=== PATIENT | male | born 1985 | race Two or more races ===

== ENCOUNTER → 2021-11-01 13:52 | Outpatient (BNVA) | payer OTHER, SELFPAY | PROVIDERS: PCP Nurse Practitioner Family; Visit Provider Surgery | DX: L05.91 Pilonidal cyst without abscess (principal) | CPT/HCPCS: 99202 ==

== ENCOUNTER 2021-11-10 10:04 | Outpatient (REF) | payer OTHER, SELFPAY ==
[2021-11-10 11:03] LABS: Basophils Absolute Auto 0.1 X10*3/uL (0.0-0.2); Basophils Percent Auto 0.5 % (0-2); Eosinophils Absolute Auto 0.3 X10*3/uL (0.0-0.4); Eosinophils Percent Auto 2.6 % (0-4); Hematocrit 43.4 % (42.0-52.0); Hemoglobin 14.3 g/dl (14.0-18.0); Imm Gran Abs Auto 0.04 X10*3/uL (0.00-0.03); Imm Gran Pct Auto 0.4 % (0.0-0.4); Lymphocytes Absolute Auto 4.2 X10*3/uL (1.2-4.9); Lymphocytes Percent Auto 36.5 % (20-40); MANUAL DIFF FLAG SCAN; Mean Corpuscular HGB Conc 32.9 g/dl (31.0-36.0); Mean Corpuscular Hemoglobin 27.4 pg (27.0-33.0); Mean Corpuscular Volume 83.3 fL (80.0-98.0); Mean Platelet Volume 10.9 fL (9.4-12.4); Monocytes Absolute Auto 0.5 X10*3/uL (0.1-1.2); Monocytes Percent Auto 4.4 % (2-11); Neutrophils Absolute Auto 6.3 x10*3/uL (2.0-8.3); Neutrophils Percent Auto 55.6 % (45-73); Platelet Count 425 X10*3/uL (160-400); Red Blood Count 5.21 X10*6/uL (4.60-5.80); Red Cell Distribution Width 13.6 % (11.0-16.0); SCAN SMEAR FLAG 1; White Blood Count 11.4 X10*3/uL (4.8-10.8)
[2021-11-10 11:13] LABS: Appearance Urine CLEAR; Color Urine YELLOW; Glucose Urine UA NEG (NEG); Leukocyte Esterase Urine NEG (NEG); Nitrite Urine NEG (NEG); Specific Gravity - Urine >= 1.030 (1.005-1.025); Urine Blood NEG (NEG); Urine Ketones NEG (NEG); Urine Protein NEG (NEG-TRACE)
[2021-11-10 11:27] LABS: SLIDE REVIEW VERIFIED
[2021-11-10 11:35] LABS: Alanine Aminotransferase 35 U/L (0-40); Albumin Level 4.3 g/dL (3.5-5.0); Alkaline Phosphatase 100 U/L (39-117); Anion Gap 13 (12-20); Aspartate Amino Transferase 21 U/L (5-37); Bilirubin Total 0.4 mg/dL (0.0-1.0); Blood Urea Nitrogen 12 mg/dL (9-16); Calcium 9.6 mg/dL (8.4-10.2); Carbon Dioxide 24 mmol/L (22-29); Chloride 108 mmol/L (96-108); Cholesterol 190 mg/dL; Estimated Glomerular Filt Rate > 60; Glucose Fasting 95 mg/dL (60-99); HDL Cholesterol 21 mg/dL; LDL Cholesterol Calculated 124 mg/dl; Potassium 4.8 mmol/L (3.3-5.1); Sodium 140 mmol/L (135-145); Total Protein 7.7 g/dL (6.5-8.0); Triglycerides 227 mg/dL
[2021-11-10 11:41] LABS: TSH reflex Free T4 3.74 uIU/mL (0.32-4.0)
== END 2021-11-10 10:05 | disposition home or self-care (01) ==
LOC: HO.LAB 10:04
PROVIDERS: Visit Provider Nurse Practitioner Family
DX: F32.A Depression, unspecified (principal); F41.9 Anxiety disorder, unspecified; L05.91 Pilonidal cyst without abscess; R03.0 Elevated blood-pressure reading, without diagnosis of hypertension; E78.00 Pure hypercholesterolemia, unspecified; I10 Essential (primary) hypertension
CPT/HCPCS: 36415; 80053; 80061; 81003; 84443; 85025

== ENCOUNTER 2021-11-14 07:18 | Day surgery (SDC) | payer OTHER, SELFPAY ==
[2021-11-08 10:49] VITALS: BMI 37.3
--- NOTE | 2021-11-13 08:17 | HO.ANESPROP2 ---
Documented by User: Jada Presley NP 11/13/21 08:18 HPI - Anesthesia Eval Consult details Narrative: 36yo M for Excision Pilonidal Cyst PMFSH Active Problems Active Problems: All Active Problems (Updated 11/01/21 @ 14:25 by Devon Hill MD) Anxiety and depression (Acute) Cellulitis (Acute) Pilonidal cyst (Acute) Elevated blood pressure reading (Acute) Past Medical History Medical History (Updated 11/01/21 @ 14:25 by Devon Hill MD) Anxiety and depression Family History Family History Mother Mental health disorder Surgical History Surgical History History of knee surgery Hx of anterior cruciate ligament surgery Social History Social History Housing: House Alcohol intake: never Patient Tobacco Use Status: Current everyday Tobacco user Tobacco use type: Cigarette Cigarettes Per Day: 10 e-Cigarette/Vaping Use: Never Used Second Hand Smoke Exposure: No Use of substances other than those prescribed or required for medical reasons: No Substance Use Frequency: Daily Are you DNR?: No Advance Directives: No Advance Directives Information Provided: Yes Advance Directives on File: No service: No Current occupational status: unemployed Cognitive needs: No Hearing needs: No Vision needs: Yes (glasses) Meds Allergies Allergy/AdvReac Type Severity Reaction Status Date / Time Penicillins [PENICILLINS] Allergy Unknown Anaphylaxis Verified 11/14/21 07:30 Exam Exam Date and Time: November 13, 2021 0817 Height,Weight and Vital Signs: Height 5 ft 9 in Weight 114.759 kg Pertinent Lab Results Pertinent Lab Results: Laboratory Tests 11/10/21 11/10/21 10:25 10:25 WBC 11.4 H Hgb 14.3 Hct 43.4 Plt Count 425 H Sodium 140 Potassium 4.8 Chloride 108 Carbon Dioxide 24 BUN 12 Creatinine 1.11 Assessment and Plan Assessment Anesthesia Assessment: Chart Reviewed Documented by User: Brooklyn Ann MD 11/14/21 07:52 PMFSH Past Medical History Medical History (Updated 11/01/21 @ 14:25 by Devon Hill MD) Anxiety and depression Family History Family History Mother Mental health disorder Surgical History Surgical History History of knee surgery Hx of anterior cruciate ligament surgery History of Problems with Anesthesia: No Social History Social History Housing: House Alcohol intake: never Patient Tobacco Use Status: Current everyday Tobacco user Tobacco use type: Cigarette Cigarettes Per Day: 10 e-Cigarette/Vaping Use: Never Used Second Hand Smoke Exposure: No Use of substances other than those prescribed or required for medical reasons: No Substance Use Frequency: Daily Are you DNR?: No Advance Directives: No Advance Directives Information Provided: Yes Advance Directives on File: No service: No Current occupational status: unemployed Cognitive needs: No Hearing needs: No Vision needs: Yes (glasses) Meds Allergies Allergy/AdvReac Type Severity Reaction Status Date / Time Penicillins [PENICILLINS] Allergy Unknown Anaphylaxis Verified 11/14/21 07:30 Exam Airway Mallampati Class: II TM Dist: >3cm Neck ROM: Full Loose/Missing/Broken Teeth: No Heart: RRR Lungs: CTA Assessment and Plan Assessment Anesthesia Assessment: Anesthesia Plan Discussed Final Anesthetic Review History of Problems with Anesthesia: No NPO: Yes ASA Class: II Final Preanesthetic Review: Meds/Allgs Chart Reviewed, Consent Obtained/Reviewed and Anes Risks/Benef Reviewed Patient Risk: Low Procedure Risk: Low Anesthetic Plan Anesthetic Plan: GA Disposition: Standard PACU
[2021-11-14] VITALS (7 sets, daily range): BP systolic 92–121; BP diastolic 44–77; PULSE 61–83; RESP 16–20; TEMP 36.6–36.8; O2SAT 92–98
[2021-11-14] MEDS: Lactated Ringers 1,000 ML 100 ML IVCONT (07:54)
--- NOTE | 2021-11-14 08:30 | MHC.SHP ---
Pre-Procedural Eval Section A Date of Service: 11/14/21 The patient is an INPATIENT: No Changes since office visit: Yes Cold of Flu in the past 2 weeks, Yes New Medical Problems, Yes Changes in Medication and Yes Patient answered all questions The History & Physical has been completed within 30 days and I have reviewed it.: Yes Section B Chief Complaint: pilonidal cyst Allergies: Allergies Allergy/AdvReac Type Severity Reaction Status Date / Time Penicillins [PENICILLINS] Allergy Unknown Anaphylaxis Verified 11/14/21 07:30 Plan I have reviewed the history and physical and performed a pertinent physical examination on my patient. No changes have occurred unless specified.
--- NOTE | 2021-11-14 09:50 | P.OP_ITS ---
Operative Note Operative Note Date of Service: 11/14/21 Narrative: Preop diagnosis: Pilonidal cyst, sacrococcygeal area Postop diagnosis: The same Procedure: Excision of pilonidal cyst, sacrococcygeal area Surgeon: Devon Hill MD 1st patient care nursing assistant: ARTHUR Dumont The patient is a 36-year-old male with a recurrent area of pain, swelling and tenderness in the sacrococcygeal region. He had a sinus in the midline with an indurated air lateral to the the left of the midline. This was consistent with a pilonidal cyst. He he understood the technique of excision anesthesia. He was aware of the risks, benefits, and alternatives He was brought to the operating room. He was placed in prone position under general anesthesia via endotracheal tube. The buttocks were retracted with wide tape laterally. The sacrococcygeal area is prepped draped in the usual sterile fashion. A surgical time-out was done. The patient received mycin IV for prophylaxis Examination showed a deep sinus in the midline near the cleft. There was note of an indurated area to the left of this. There was note of midline pits as well I infiltrated my planned line of incision with lidocaine 1%. I made an incision elliptically around this midline it to include the indurated area to the left using a blade 15. This was carried down through the full-thickness of the skin and deep site drain is fat using electrocautery. Continued to excise all the cyst tissue to include all the indurated areas. Once this was completely removed this was sent as specimen. The area of excision was 6 cm long by 4 cm wide and 4 cm deep I used electrocautery to achieve hemostasis. I copiously irrigated. Once hemostasis was confirmed, I reapposed the deep subcutaneous layer with Dexon 2-0 interrupted sutures after undermining this to allow closure without tension I closed the skin with full-thickness nylon 2-0 vertical mattress sutures and some simple interrupted sutures. Thick dressings were applied. The area of the incision was infiltrated with Marcaine 0.5% for postop analgesia. The procedure was then completed The patient tolerated procedure well. There were no complication noted. Initial and final counts of sponges and instruments were correct. Estimated blood loss was about 40 cc The patient was extubated without difficulty and transferred to the recovery room with stable vital signs.
[2021-11-14] MEDS: oxyCODONE HCl Immed Release 5 MG TABLET PO (10:15)
[2021-11-14] MEDS: fentaNYL citrate/PF 100 MCG/2 ML VIAL 50 MCG IVPUSH (10:15)
== END 2021-11-14 11:05 | disposition home or self-care (01) ==
PROVIDERS: Visit Provider Surgery
PROC: (CPT 11771; principal; 2021-11-14 09:10)
DX: L05.91 Pilonidal cyst without abscess (principal); F41.8 Other specified anxiety disorders; Z79.899 Other long term (current) drug therapy; Z88.0 Allergy status to penicillin; F17.210 Nicotine dependence, cigarettes, uncomplicated
CPT/HCPCS: 11771; 88304; J0131; J0690; J1100; J1885; J2250; J2405; J2795; J3010; J3370

== ENCOUNTER 2022-05-04 09:31 | Outpatient (REF) | payer OTHER, SELFPAY ==
[2022-05-04 11:39] LABS: Vitamin D 25-OH Total 10.3 ng/mL (>30)
[2022-05-04 11:51] LABS: Folate 10.5 ng/mL (> or = 4.0); Vitamin B12 428 pg/mL (200-900)
[2022-05-11 22:53] LABS: Testosterone, Free 78.7 pg/mL (35.0-155.0); Testosterone, Total 471 ng/dL (250-1100)
== END 2022-05-04 09:32 | disposition home or self-care (01) ==
LOC: HO.LAB 09:31
PROVIDERS: Visit Provider Nurse Practitioner Family
DX: R53.83 Other fatigue (principal); N52.9 Male erectile dysfunction, unspecified
CPT/HCPCS: 36415; 82306; 82607; 82746; 84402; 84403

== ENCOUNTER 2022-05-17 14:12 | Outpatient (REF) | payer OTHER, SELFPAY ==
--- NOTE | ~2022-05-17 | CT_ITS ---
EXAMINATION: CT HEAD WITHOUT CONTRAST CLINICAL INFORMATION: Headache. COMPARISON: None TECHNIQUE: Contiguous axial imaging was performed from the skull base to vertex without intravenous administration of contrast. This CT examination was performed using dose optimization techniques as appropriate, variously including the following: *Automated exposure control *Adjustment of mA and/or kV according to patient size (this includes techniques or standardized protocols for targeted exams where dose is matched to indication/reason for exam; i.e. extremities or head) *Use of iterative reconstruction technique DLP: 858 mGy-cm FINDINGS: There is no acute intra-axial bleed, extra-axial bleed, masses or midline shift. There is no acute infarct in evolution. There is no edema. The matson to white matter differentiation is maintained normal. The lateral ventricles are symmetrical in size and configuration without enlargement. Bone windows reveal no calvarial abnormality. There is no scalp soft tissue abnormality. Bilateral paranasal sinuses and mastoid air cells are well-aerated. CT/CT head/brain wo IV con IMPRESSION: No acute intracranial process seen.
== END 2022-05-17 14:13 | disposition home or self-care (01) ==
LOC: HO.CT 14:12
PROVIDERS: Visit Provider Nurse Practitioner Family
DX: R51.9 Headache, unspecified (principal)
CPT/HCPCS: 70450

== ENCOUNTER 2022-08-31 15:56 | Outpatient (REF) | payer OTHER, SELFPAY ==
[2022-08-31 17:30] LABS: Vitamin D 25-OH Total 25.1 ng/mL (>30)
[2022-09-03 04:26] LABS: Syphilis Screen Nonreactive (Nonreactive)
[2022-09-03 04:35] LABS: HBS Num1 163.23 mIU/mL (0-7.99); HBc Num1 0.08 S/CO (0.00-0.79); HBsAGNum1 0.24 S/CO (0.00-0.99); HIV AB/AG Nonreactive (Nonreactive); HIV Num 1 0.06 S/CO (0.00-0.99); Hepatitis B Core Antibody Nonreactive (Nonreactive); Hepatitis B Surface Antigen Negative (Negative); ~Hepatitis B Surface Antibody REACTIVE (Nonreactive); ~Hepatitis C Antibody Nonreactive (Nonreactive)
== END 2022-08-31 15:57 | disposition home or self-care (01) ==
LOC: HO.LAB 15:56
PROVIDERS: Visit Provider Nurse Practitioner Family
DX: Z11.4 Encounter for screening for human immunodeficiency virus [HIV] (principal); Z11.3 Encounter for screening for infections with a predominantly sexual mode of transmission; R79.89 Other specified abnormal findings of blood chemistry; E55.9 Vitamin D deficiency, unspecified
CPT/HCPCS: 82306; 86704; 86706; 86780; 86803; 87340; 87389

== ENCOUNTER 2022-09-03 15:03 | Outpatient (REF) | payer OTHER, SELFPAY ==
[2022-09-03 17:32] LABS: CT PCR NOT DETECTED (Not Detect.); NG PCR NOT DETECTED (Not Detect.)
== END 2022-09-03 15:04 | disposition home or self-care (01) ==
LOC: HO.LAB 15:03
PROVIDERS: Visit Provider Nurse Practitioner Family
DX: Z11.3 Encounter for screening for infections with a predominantly sexual mode of transmission (principal)
CPT/HCPCS: 0353U

== ENCOUNTER 2023-10-22 10:29 | Outpatient (AMB) | payer OTHER, SELFPAY ==
--- NOTE | 2023-10-22 10:31 | A.OFFPC_ITS ---
Vital Signs 10/22/23 10:34 Height 5 ft 9 in Weight 226 lb 4 oz BMI 33.4 BP 110/70 Blood Pressure Location Lt brachial Position Sitting Pulse 75 Pulse Source Pulse Oximeter Pulse Oximetry (%) 95 Oxygen Delivery Method Room Air Intake Visit Reasons: yaz- [place]/ annual exam Intake Note: Patient is here today for YAZ from [facility] and possible PE Neon Sign Mechanic Required: No Model Making Supervisor: Not Required per policy Accompanied by: Self / Same As Patient Allergies Penicillins [PENICILLINS] Allergy (Unknown, Verified 10/22/23 13:17) Anaphylaxis Medication List - Last Reconciled 10/22/23 by Arpan Solares MD cholecalciferol (vitamin D3) 50 mcg PO DAILY clonidine HCl 0.1 mg PO BID hydroxyzine HCl 25 mg PO BID ibuprofen 600 mg PO Q6H PRN nicotine 1 patch transdermal DAILY risperidone 1 mg PO BEDTIME Tobacco use date assessed: 10/22/23 Dental Screening Dental Screen Date: 10/22/23 Did you have a dental visit in the last 12 months?: Yes Did you have a dental problem in the last 6 months where you did not have access to dental care?: No Was dental information given to patient?: Patient has dentist HPI yaz- [facility]/ annual exam HPI Details 38-year-old male presents to the office to discuss his medical condition. His current provider has left the practice and I will be assuming his care. Patient walks into the office alone. He gives history of borderline personality disorder. He has several psych meds that he is taking. He lives with a roommate. Admits to smoking marijuana every day. Denies history of any other substance use. Denies using alcohol. Able to function and do his activities independently. Does not drive. Patient believes he has getting a few episodes of panic disorder despite taking all the medications. He feels anxious at times, his heart rate increases, he feels nervous etcetera. Symptoms then subside on their own. [facility] Medical History (Updated 10/22/23 @ 13:20 by Arpan Solares MD) Borderline personality disorder Obesity (BMI 35.0-39.9 without comorbidity) Cellulitis Anxiety and depression Surgical History History of removal of cyst (~2021) History of knee surgery Hx of anterior cruciate ligament surgery Family History Mother Mental health disorder Social History Housing: House Alcohol intake: never Patient Tobacco Use Status: Current everyday Tobacco user Tobacco use type: Cigarette Cigarette Packs Per Day: 0.5 Cigarettes Per Day: 7 e-Cigarette/Vaping Use: Never Used Second Hand Smoke Exposure: Yes service: No Current occupational status: unemployed Cognitive needs: No Hearing needs: No Vision needs: Yes (glasses) Questionnaire PHQ-9 Over the last 2 weeks, how often have you been bothered by any of the following problems? 1. Little interest or pleasure in doing things: nearly every day 2. Feeling down, depressed, or hopeless: more than half the days ([facility] with [facility]) 3. Trouble falling or staying asleep, or sleeping too much: more than half the days 4. Feeling tired or having little energy: nearly every day 5. Poor appetite or overeating: nearly every day 6. Feeling bad about yourself - or that you are a failure or have let yourself or your family down: nearly every day 7. Trouble concentrating on things, such as reading the newspaper or watching television: nearly every day 8. Moving or speaking so slowly that other people could have noticed. Or the opposite - being so fidgety or restless that you have been moving around a lot more than usual: more than half the days 9. Thoughts that you would be better off or of hurting yourself in some way: several days Total score: 22 Depression Screening Interpretation: Positive Depression Screening Follow-up: Existing condition and In treatment Depression Screening Done: Yes Source: Developed by Drs. Marcos Serrato, Jaci Khoury, Иван Deluna and colleagues, with an educational flor from [employer]. Thrive Questionnaire Date Thrive assessed: 10/22/23 I am a: Patient What is your living situation today?: I have a steady place to live Within the past 12 months, did the food you bought not last and you didn't have the money to get more?: Never true Within the past 12 months, did you worry whether your food would run out before you got money to buy more?: Never true Do you have trouble paying for medicines?: No Do you have trouble getting transportation to medical appointments?: No Do you have trouble paying your heating and electricity bill?: No Do you have trouble taking care of your child, family member or friend?: No Do you have trouble with day-to-day activities such as bathing, preparing meals, shopping, managing finances, etc.?: No Are you currently unemployed and looking for a job?: No Are you interested in more education?: No Currently or been in a relationship where the following occur: No concerns reported THRIVE Score: 0 AUDIT C Alcohol Use Questionnaire (AUDIT-C) 1. How often do you have a drink containing alcohol?: Never Total Score: 0 AYE-7 AMB Questionnaire AYE-7 Date AYE - 7 assessed: 10/22/23 Feeling nervous, anxious, or on edge: 1 = Several days (in treatment with [facility]) Not being able to stop or control worryin = Nearly every day Worrying too much about different things: 3 = Nearly every day Trouble relaxin = Nearly every day Being so restless that it is hard to sit still: 3 = Nearly every day Becoming easily annoyed or irritable: 3 = Nearly every day Feeling afraid as if something awful might happen: 2 = More than half the days Total AYE-7 score (0-4 normal; 5-9 mild; 10-14 moderate; 15-21 severe): 18 Source: Developed by Drs. Marcos Serrato, Jaci Khoury, Иван Deluna and colleagues, with an educational flor from [employer]. Physical exam (Primary Care) Vital Signs: Last Vital Signs Pulse 75 10/22/23 10:34 BP 110/70 10/22/23 10:34 Pulse Ox 95 10/22/23 10:34 Oxygen Delivery Method Room Air 10/22/23 10:34 Next steps: Blood pressure is stable. BMI result Body Mass Index 33.4 BMI Assessment/Plan discussion: High Tobacco/Smoking Status: Tobacco use Status Tobacco use date assessed 10/22/23 10/22/23 10:43 Patient Tobacco Use Status Current everyday Tobacco 10/22/23 10:43 Tobacco use type Cigarette 10/22/23 10:43 e-Cigarette/Vaping Use Never Used 10/22/23 10:43 PHQ-9: PHQ-9 Score PHQ-9: Total score 22 10/22/23 10:43 Depression Screening Interpretation: Positive Depression Screening Follow-up: Existing condition and In treatment Thrive Assessment: Date of Thrive Assessment Date Thrive assessed 10/22/23 10/22/23 10:43 Currently or been in a relationship where the following occur: No concerns reported Const General: cooperative and healthy appearing Nutritional Appearance: well nourished Orientation/consciousness: patient oriented x3 Limitations: no limitations HENMT Head: Yes normal to inspection Eyes General: appearance normal, both eyes and all related structures Neck Neck: Yes normal visual inspection Chest Chest palpation & inspection: normal palpation of entire chest wall Resp Effort & Inspection: normal respiratory effort Neuro General: patient oriented x3 Assessment and Plan Assessment & Plan (1) Obesity (BMI 30-39.9): Code(s): E66.9 - Obesity, unspecified (2) Anxiety and depression: Code(s): F41.9 - Anxiety disorder, unspecified; F32.A - Depression, unspecified Plan: Patient was encouraged to keep his appointment with the therapist and provider today. He would need changes in his medication. (3) Borderline personality disorder: Code(s): F60.3 - Borderline personality disorder Medications: Refilled nicotine 1 patch transdermal DAILY 28 ea 0RF F17.200 - Nicotine dependence, unspecified, uncomplicated cholecalciferol (vitamin D3) 50 mcg PO DAILY 90 tabs 0RF R79.89 - Other specified abnormal findings of blood chemistry Coding Level of Care Code Est Pt Level 4 (98658) Complex EM visit Add On G2211 Diagnoses Obesity (BMI 30-39.9) E66.9 Anxiety and depression F41.9; F32.A Borderline personality disorder F60.3
[2023-10-22 10:34] VITALS: BP 110/70; PULSE 75; O2SAT 95; BMI 33.4
== END 2023-10-22 13:26 | disposition home or self-care (01) ==
PROVIDERS: PCP Nurse Practitioner Family; Visit Provider Internal Medicine
DX: F41.9 Anxiety disorder, unspecified (principal); F33.9 Major depressive disorder, recurrent, unspecified; F60.3 Borderline personality disorder; F17.210 Nicotine dependence, cigarettes, uncomplicated
CPT/HCPCS: 99214; G2211

== ENCOUNTER 2024-06-22 09:25 | Outpatient (REF) | payer OTHER, SELFPAY ==
[2024-06-22 09:50] LABS: Hematocrit 38.7 % (42.0-52.0); Hemoglobin 13.4 g/dl (14.0-18.0); Mean Corpuscular HGB Conc 34.6 g/dl (31.0-36.0); Mean Corpuscular Hemoglobin 28.8 pg (27.0-33.0); Mean Corpuscular Volume 83.2 fL (80.0-98.0); Mean Platelet Volume 10.4 fL (9.4-12.4); Platelet Count 351 X10*3/uL (160-400); Red Blood Count 4.65 X10*6/uL (4.60-5.80); Red Cell Distribution Width 13.4 % (11.0-16.0); White Blood Count 7.6 X10*3/uL (4.8-10.8)
[2024-06-22 10:43] LABS: Alanine Aminotransferase 54 U/L (0-40); Alkaline Phosphatase 106 U/L (39-117); Anion Gap 11 (12-20); Aspartate Amino Transferase 29 U/L (5-37); Bilirubin Direct 0.1 mg/dL (0.0-0.5); Bilirubin Total 0.3 mg/dL (0.0-1.0); Blood Urea Nitrogen 15 mg/dL (9-16); Calcium 9.7 mg/dL (8.4-10.2); Carbon Dioxide 23 mmol/L (22-29); Chloride 111 mmol/L (96-108); Cholesterol 225 mg/dL (<200); Estimated Glomerular Filt Rate > 60; Glucose Random 100 mg/dL (60-115); HDL Cholesterol 25 mg/dL (>40); Potassium 4.2 mmol/L (3.3-5.1); Sodium 141 mmol/L (135-145); Total Protein 7.8 g/dL (6.5-8.0); Triglycerides 432 mg/dL (<150)
[2024-06-22 10:49] LABS: Thyroid Stimulating Hormone 7.02 uIU/mL (0.32-4.0)
== END 2024-06-22 09:26 | disposition home or self-care (01) ==
LOC: HO.LAB 09:25
PROVIDERS: PCP Internal Medicine; Visit Provider Internal Medicine
DX: F60.3 Borderline personality disorder (principal); E66.9 Obesity, unspecified
CPT/HCPCS: 36415; 80048; 80061; 80076; 84443; 85027

== ENCOUNTER 2024-07-02 15:53 | Outpatient (AMB) | payer OTHER, SELFPAY ==
--- NOTE | 2024-07-02 16:00 | MHC.PC.OV ---
Vital Signs 07/02/24 16:01 Height 5 ft 9 in Weight 245 lb 6 oz BMI 36.2 BP 106/80 Blood Pressure Location Lt brachial Position Sitting Pulse 90 Pulse Source Pulse Oximeter Pulse Oximetry (%) 96 Oxygen Delivery Method Room Air Intake Visit Reasons: discuss labs [employer] Required: No Accompanied by: Self / Same As Patient Allergies Penicillins [PENICILLINS] Allergy (Unknown, Verified 07/02/24 16:28) Anaphylaxis Medication List - Last Reconciled 07/02/24 by Nori Faye PA-C aspirin (Adult Aspirin Regimen) 81 mg PO DAILY atorvastatin 10 mg PO DAILY bupropion HCl XL 300 mg PO DAILY cholecalciferol (vitamin D3) 50 mcg PO DAILY clonidine HCl 0.1 mg PO BID hydroxyzine HCl 25 mg PO BID ibuprofen 600 mg PO Q6H PRN mirtazapine 7.5 mg PO BEDTIME nicotine 1 patch transdermal DAILY olanzapine 15 mg PO BEDTIME risperidone 1 mg PO BEDTIME zolpidem 10 mg PO BEDTIME PRN Tobacco use date assessed: 07/02/24 Dental Screening Dental Screen Date: 07/02/24 Did you have a dental visit in the last 12 months?: Yes Did you have a dental problem in the last 6 months where you did not have access to dental care?: No Was dental information given to patient?: Patient has dentist [facility], [facility] Medical History (Updated 07/02/24 @ 16:31 by Nori Faye PA-C) Elevated TSH Mild hypercholesterolemia Hyperlipidemia Hypertriglyceridemia Chest tightness Borderline personality disorder Obesity (BMI 35.0-39.9 without comorbidity) Cellulitis Anxiety and depression Surgical History History of removal of cyst (~2021) History of knee surgery Hx of anterior cruciate ligament surgery Family History Mother Mental health disorder Social History Housing: House Alcohol intake: never Patient Tobacco Use Status: Current everyday Tobacco user Tobacco use type: Cigarette Cigarette Packs Per Day: 0.5 Cigarettes Per Day: 7 e-Cigarette/Vaping Use: Never Used Second Hand Smoke Exposure: Yes service: No Current occupational status: unemployed Cognitive needs: No Hearing needs: No Vision needs: Yes (glasses) Questionnaire PHQ-9 Over the last 2 weeks, how often have you been bothered by any of the following problems? 1. Little interest or pleasure in doing things: nearly every day 2. Feeling down, depressed, or hopeless: more than half the days ([facility] with [facility]) 3. Trouble falling or staying asleep, or sleeping too much: more than half the days 4. Feeling tired or having little energy: nearly every day 5. Poor appetite or overeating: nearly every day 6. Feeling bad about yourself - or that you are a failure or have let yourself or your family down: nearly every day 7. Trouble concentrating on things, such as reading the newspaper or watching television: nearly every day 8. Moving or speaking so slowly that other people could have noticed. Or the opposite - being so fidgety or restless that you have been moving around a lot more than usual: more than half the days 9. Thoughts that you would be better off or of hurting yourself in some way: several days Total score: 22 Depression Screening Interpretation: Positive Depression Screening Follow-up: Existing condition and In treatment Depression Screening Done: Yes 89725 - PHQ-9 Billing: Yes Source: Developed by Drs. Marcos Serrato, aJci Khoury, Иван Deluna and colleagues, with an educational flor from [employer]. Thrive Questionnaire Date Thrive assessed: 07/02/24 I am a: Patient What is your living situation today?: I have a steady place to live Within the past 12 months, did the food you bought not last and you didn't have the money to get more?: Never true Within the past 12 months, did you worry whether your food would run out before you got money to buy more?: Never true Do you have trouble paying for medicines?: No Do you have trouble getting transportation to medical appointments?: No Do you have trouble paying your heating and electricity bill?: No Do you have trouble taking care of your child, family member or friend?: No Do you have trouble with day-to-day activities such as bathing, preparing meals, shopping, managing finances, etc.?: No Are you currently unemployed and looking for a job?: No Are you interested in more education?: No Please select the resources that you would like help with: None Currently or been in a relationship where the following occur: No concerns reported THRIVE Score: 0 AUDIT C Alcohol Use Questionnaire (AUDIT-C) 1. How often do you have a drink containing alcohol?: Never 3. How often do you have six or more drinks on one occasion?: Never Total Score: 0 Score Reviewed/Action Taken: No AYE-7 AMB Questionnaire AYE-7 Date AYE - 7 assessed: 07/02/24 Feeling nervous, anxious, or on edge: 1 = Several days (in treatment with [facility]) Not being able to stop or control worryin = Nearly every day Worrying too much about different things: 3 = Nearly every day Trouble relaxin = Nearly every day Being so restless that it is hard to sit still: 3 = Nearly every day Becoming easily annoyed or irritable: 3 = Nearly every day Feeling afraid as if something awful might happen: 2 = More than half the days Total AYE-7 score (0-4 normal; 5-9 mild; 10-14 moderate; 15-21 severe): 18 Source: Developed by Drs. Marcos Serrato, Jaci Khoury, Иван Deluna and colleagues, with an educational flor from [employer]. AYE-7 Assessment Billing AYE-7 Assessment Tool: AYE-7 Assessment 36000 Physical exam (Primary Care) Vital Signs: Last Vital Signs Pulse 90 07/02/24 16:01 BP 106/80 07/02/24 16:01 Pulse Ox 96 07/02/24 16:01 Oxygen Delivery Method Room Air 07/02/24 16:01 BMI result Body Mass Index 36.2 Tobacco/Smoking Status: Tobacco use Status Tobacco use date assessed 07/02/24 07/02/24 16:08 Patient Tobacco Use Status Current everyday Tobacco 07/02/24 16:08 Tobacco use type Cigarette 07/02/24 16:08 e-Cigarette/Vaping Use Never Used 07/02/24 16:08 PHQ-9: PHQ-9 Score PHQ-9: Total score 22 07/02/24 16:08 Depression Screening Interpretation: Positive Depression Screening Follow-up: Existing condition and In treatment Thrive Assessment: Date of Thrive Assessment Date Thrive assessed 07/02/24 07/02/24 16:08 Currently or been in a relationship where the following occur: No concerns reported Coding Level of Care Code Est Pt Level 4 (47602) Complex EM visit Add On G2211 Diagnoses Chest tightness R07.89 Hypertriglyceridemia E78.1 Hyperlipidemia E78.5 Mild hypercholesterolemia E78.00 Elevated TSH R79.89 Additional Codes PHQ-9 - 41047 - PHQ-9 Billing: Yes ([id number]) AYE-7 Assessment Billing - AYE-7 Assessment Tool: AYE-7 Assessment 15566 ([id number]) Assessment & Plan Assessment & Plan (1) Chest tightness: Code(s): R07.89 - Other chest pain Category: Medical Plan: Patient reports sporadic/intermittent chest tightness that only lasts a few seconds. Nothing exacerbating the symptoms. Not present at this time. Will order outpatient stress test, EKG, 3 day Holter monitor, chest x-ray due to patient has history of smoking. Condition is stable will continue to monitor (2) Hypertriglyceridemia: Code(s): E78.1 - Pure hyperglyceridemia Category: Medical Plan: Triglyceride level goal less than 150. Total cholesterol goal less than 200. LDL goal < 100. HDL goal greater than 40. Patient had labs on 06/22/2024 which revealed triglycerides of 432, total cholesterol 220, LDL was unable to be measured and HDL was 25. Therefore patient will be started on atorvastatin 10 mg daily due to 10% risk of ASCVD in 10 years. Patient understands agrees with this plan. (3) Hyperlipidemia: Code(s): E78.5 - Hyperlipidemia, unspecified Category: Medical Plan: Triglyceride level goal less than 150. Total cholesterol goal less than 200. LDL goal < 100. HDL goal greater than 40. Patient had labs on 06/22/2024 which revealed triglycerides of 432, total cholesterol 220, LDL was unable to be measured and HDL was 25. Therefore patient will be started on atorvastatin 10 mg daily due to 10% risk of ASCVD in 10 years. Patient understands agrees with this plan. (4) Mild hypercholesterolemia: Code(s): E78.00 - Pure hypercholesterolemia, unspecified Category: Medical Plan: Triglyceride level goal less than 150. Total cholesterol goal less than 200. LDL goal < 100. HDL goal greater than 40. Patient had labs on 06/22/2024 which revealed triglycerides of 432, total cholesterol 220, LDL was unable to be measured and HDL was 25. Therefore patient will be started on atorvastatin 10 mg daily due to 10% risk of ASCVD in 10 years. Patient understands agrees with this plan. (5) Elevated TSH: Code(s): R79.89 - Other specified abnormal findings of blood chemistry Category: Medical Plan: Patient with elevated TSH levels. Will repeat TSH with free T4 along with parathyroid hormone and some additional levels. Plan Plan Patient was informed and verbally consented to the use of an ambient scribe for clinic note documentation during this visit. 1. Chest Pain Initiated diagnostic imaging, including X-ray and EKG. Advised a three-day Holter monitor with possible cardiology referral as needed. 2. Other specified abnormal findings of blood chemistry R79.89 Arrange follow-up thyroid testing with future management based on confirmatory results. 3. Hyperlipidemia Initiate atorvastatin 10 mg at bedtime with planned three-month reevaluation. Discussed dietary modifications rich in HDL. 4. Anemia Mild anemia observed with a plan for monitoring pending further hematological deviation. 5. Hypertriglyceridemia Emphasized atorvastatin therapy initiation and lifestyle alterations to manage triglyceride levels. Discussion Notes I discussed with the patient his lab results indicating hyperlipidemia, mild anemia, and elevated TSH. The patient agreed to start atorvastatin at 10 mg nightly, with a three-month follow-up session planned to reassess lipid levels. Dietary changes were advised to improve HDL levels. The patient's chest pain warranted additional testing, including X-ray and EKG, as well as a Holter monitor to capture any episodes of arrhythmia over a three-day period. Discussion about potential thyroid disorder ensued, with retesting for TSH planned to confirm if intervention is necessary. Additionally, we reviewed risks and long-term benefits associated with managing hypertriglyceridemia and the adjunct role of statins in preventing potential cardiac events. Follow-up arrangements were consented to, with the patient encouraged to report any immediate aggravation of symptoms. Patient Instructions - Start taking atorvastatin 10 mg before bedtime. - Adopt dietary changes to include more HDL-rich and low-fat foods. - Have thyroid, cholesterol, and diabetes labs repeated as ordered. - Undergo chest X-ray, EKG, and three-day Holter monitoring as scheduled. - Return for evaluation in three months or sooner if symptoms worsen. - Keep track of any new or worsening symptoms, especially chest pain, and report immediately. - Avoid fatty or fried foods to help improve cholesterol levels. - Adhere to agreed follow-ups and check-ins regarding treatment tolerability and effectiveness. Orders: Orders Creatine Kinase Total Today Z00.00 - Encounter for general adult medical examination without abnormal findings ECG 12 lead EKG Today R07.89 - Other chest pain ECG 3 day holter monitor Today R07.89 - Other chest pain Hemoglobin A1c Today Z00.00 - Encounter for general adult medical examination without abnormal findings Vitamin B1 Today Z00.00 - Encounter for general adult medical examination without abnormal findings Magnesium Today Z00.00 - Encounter for general adult medical examination without abnormal findings PSA,Total (Free>4and<10) Today Z00.00 - Encounter for general adult medical examination without abnormal findings XR chest 2V Today R07.89 - Other chest pain Parathyroid Hormone Intact Today Z00.00 - Encounter for general adult medical examination without abnormal findings TSH reflex Free T4 Today Z00.00 - Encounter for general adult medical examination without abnormal findings Zinc Today Z00.00 - Encounter for general adult medical examination without abnormal findings Phosphorus Today Z00.00 - Encounter for general adult medical examination without abnormal findings CA stress test Today R07.89 - Other chest pain Medications: New aspirin (Adult Aspirin Regimen) 81 mg PO DAILY 90 tabs 1RF atorvastatin 10 mg PO DAILY 90 tabs 1RF hyperlipidemia Patient Instructions: - Start taking atorvastatin 10 mg before bedtime. - Adopt dietary changes to include more HDL-rich and low-fat foods. - Have thyroid, cholesterol, and diabetes labs repeated as ordered. - Undergo chest X-ray, EKG, three-day Holter monitoring and cardiac stress test as scheduled. - Return for evaluation in one months or sooner if symptoms worsen. - Keep track of any new or worsening symptoms, especially chest pain, and report immediately. - Avoid fatty or fried foods to help improve cholesterol levels. - Adhere to agreed follow-ups and check-ins regarding treatment tolerability and effectiveness. Scribe Plan - Not visible on output: History of Present Illness The patient is a 39-year-old male presenting with concerns related to previously abnormal blood work results. He reports elevated cholesterol levels, with triglycerides notably high and HDL on the lower spectrum. The LDL count was indeterminate in prior results, implying a possibly elevated status that requires further evaluation. Fasting measures were ensured during the initial blood work. There is a mild anemia present, not described as clinically significant but noteworthy. Additionally, an elevated TSH level is noted, leading to the current necessity for repetition to confirm any variance from the norm in thyroid function. The patient experiences episodic chest pain, characterized by a central tightening or gripping sensation occasionally leading to sharp pains. These events last approximately five minutes and occur without specific triggers such as exertion or posture changes. He has raised these symptoms as a concern, considering their spontaneous nature and potential connection with the abnormal blood work findings, particularly thyroid involvement. Social History - Patient is a current smoker. - Reports no use of blood pressure medications. - There is no use of aspirin noted. - Denies alcohol use or illicit drug use. - No children and minimal emphasis on familial obligations. Review of Systems - Cardiovascular: Reports intermittent chest tightness and stabbing pains not associated with exertion. - Endocrine: Denies any new symptoms commonly associated with thyroid dysfunction aside from reported test results. - Gastrointestinal: Denies black or bloody stools. - Neurological: Denies any episodes of weakness or paresthesia. Physical Exam Appearance: Alert. Oriented X3. No acute distress. Head: Normal external exam. Normocephalic. Atraumatic. Eyes: Pupils are equal, round, and reactive to light. Extraocular movements intact. Conjunctiva and sclera normal. Eyelids normal. Ears: External auditory canal normal. Tympanic membranes normal. Throat: Pharynx normal. Uvula midline. Moist mucous membranes. Neck: Normal inspection. Neck supple. Full range of motion. No adenopathy. Thyroid Normal. No meningeal signs. No neck mass noted. Cardiovascular: Normal heart rate and rhythm. Heart sound normal. No murmurs noted. Pulses normal throughout. Respiratory: No respiratory distress. Painless inspiration. Breath sounds normal. No wheezes/rales/rhonchi noted. Chest nontender. No accessory muscle usage noted or decreased air movement noted. Abdomen: Soft and nontender. Bowel sounds normal in all 4 quadrants. No distention noted. No organomegaly noted. No visible injury noted. Back: No costovertebral angle tenderness. Full range of motion noted. Skin: Skin warm and dry. Normal skin color. Normal skin turgor. No rashes/lesions/lacerations noted. Extremities: No lower extremity edema. Extremities exhibit normal range of motion. Extremities nontender. Neuro: Oriented X 3. No motor deficit. No sensory deficit. Reflexes normal. Results - Labs: Elevated triglycerides, high cholesterol, low HDL, elevated TSH, mild anemia. - Tests and Diagnostics: Planned follow-up for chest X-ray and EKG, stress test. Reorder of thyroid function test and hemoglobin A1c for diabetes screening.
[2024-07-02 16:01] VITALS: BP 106/80; PULSE 90; O2SAT 96; BMI 36.2
== END 2024-07-02 16:36 | disposition home or self-care (01) ==
LOC: HO.HMCH 15:54
PROVIDERS: PCP Internal Medicine; Visit Provider Physician Assistant Medical
DX: R07.89 Other chest pain (principal); E78.1 Pure hyperglyceridemia; E78.5 Hyperlipidemia, unspecified; E78.00 Pure hypercholesterolemia, unspecified; R79.89 Other specified abnormal findings of blood chemistry

== ENCOUNTER 2024-07-02 15:53 | Outpatient (REF) | payer OTHER, SELFPAY | END 2024-07-02 15:54 | disposition home or self-care (01) | LOC: HO.LAB 15:53 | PROVIDERS: PCP Internal Medicine; Visit Provider Physician Assistant Medical | DX: R07.89 Other chest pain (principal); E78.1 Pure hyperglyceridemia; E78.00 Pure hypercholesterolemia, unspecified; R79.89 Other specified abnormal findings of blood chemistry | CPT/HCPCS: 96127; 99212 ==

== ENCOUNTER 2024-07-04 08:35 | Outpatient (REF) | payer OTHER, SELFPAY ==
[2024-07-04 09:27] LABS: Estimated Average Glucose 100 mg/dL; Hemoglobin A1c % 5.1 % (<6.0); Total Hemoglobin (HGBA1C) 3550.8688 umol/L
[2024-07-04 09:52] LABS: Magnesium 2.1 mg/dL (1.6-2.6); Phosphorus 3.9 mg/dL (2.7-4.5)
[2024-07-04 10:04] LABS: PSA,Total (Free>4and<10) 0.36 ng/mL (0.00-4.00)
[2024-07-04 10:11] LABS: TSH reflex Free T4 5.44 uIU/mL (0.32-4.0)
[2024-07-04 12:50] LABS: Free T4 (Free Thyroxine) 1.02 ng/dL (0.71-1.85)
[2024-07-08 09:19] LABS: Zinc 47 mcg/dL (60-130)
[2024-07-13 05:52] LABS: Vitamin B1 23 nmol/L (8-30)
== END 2024-07-04 08:36 | disposition home or self-care (01) ==
LOC: HO.LAB 08:35
PROVIDERS: Internal Medicine; PCP Physician Assistant Medical; Visit Provider Physician Assistant Medical
DX: Z00.00 Encounter for general adult medical examination without abnormal findings (principal)
CPT/HCPCS: 36415; 82550; 83036; 83735; 83970; 84100; 84153; 84425; 84439; 84443; 84630

== ENCOUNTER 2024-07-05 10:17 | Outpatient (REF) | payer OTHER, SELFPAY | END 2024-07-05 10:18 | disposition home or self-care (01) | LOC: HO.LNP 10:17 | PROVIDERS: Visit Provider Internal Medicine | DX: Z13.89 Encounter for screening for other disorder (principal) ==

== ENCOUNTER 2024-07-08 08:45 | Outpatient (REF) | payer OTHER, SELFPAY ==
[2024-07-08 09:29] LABS: Basophils Absolute Auto 0.1 X10*3/uL (0.0-0.2); Basophils Percent Auto 0.8 % (0-2); Eosinophils Absolute Auto 0.3 X10*3/uL (0.0-0.4); Eosinophils Percent Auto 3.5 % (0-4); Hematocrit 39.3 % (42.0-52.0); Hemoglobin 13.3 g/dl (14.0-18.0); Imm Gran Abs Auto 0.02 X10*3/uL (0.00-0.03); Imm Gran Pct Auto 0.3 % (0.0-0.4); Lymphocytes Absolute Auto 4.1 X10*3/uL (1.2-4.9); Lymphocytes Percent Auto 55.8 % (20-40); MANUAL DIFF FLAG SCAN; Mean Corpuscular HGB Conc 33.8 g/dl (31.0-36.0); Mean Corpuscular Hemoglobin 28.6 pg (27.0-33.0); Mean Corpuscular Volume 84.5 fL (80.0-98.0); Mean Platelet Volume 10.5 fL (9.4-12.4); Monocytes Absolute Auto 0.5 X10*3/uL (0.1-1.2); Monocytes Percent Auto 6.1 % (2-11); Neutrophils Absolute Auto 2.5 x10*3/uL (2.0-8.3); Neutrophils Percent Auto 33.5 % (45-73); Platelet Count 376 X10*3/uL (160-400); Red Blood Count 4.65 X10*6/uL (4.60-5.80); Red Cell Distribution Width 13.6 % (11.0-16.0); SCAN SMEAR FLAG 1; White Blood Count 7.4 X10*3/uL (4.8-10.8)
[2024-07-08 10:20] LABS: Alanine Aminotransferase 33 U/L (0-40); Albumin Level 3.9 g/dL (3.5-5.0); Alkaline Phosphatase 105 U/L (39-117); Anion Gap 8 (12-20); Aspartate Amino Transferase 21 U/L (5-37); Bilirubin Total 0.2 mg/dL (0.0-1.0); Blood Urea Nitrogen 12 mg/dL (9-16); Carbon Dioxide 22 mmol/L (22-29); Chloride 114 mmol/L (96-108); Cholesterol 181 mg/dL (<200); Estimated Glomerular Filt Rate > 60; Glucose Fasting 113 mg/dL (60-99); HDL Cholesterol 22 mg/dL (>40); Potassium 3.9 mmol/L (3.3-5.1); Sodium 140 mmol/L (135-145); Total Protein 7.1 g/dL (6.5-8.0); Triglycerides 518 mg/dL (<150)
[2024-07-08 10:48] LABS: SLIDE REVIEW VERIFIED
== END 2024-07-08 08:46 | disposition home or self-care (01) ==
LOC: HO.LAB 08:45
PROVIDERS: PCP Internal Medicine; Visit Provider Nurse Practitioner Psychiatric/Mental Health
DX: Z79.899 Other long term (current) drug therapy (principal)
CPT/HCPCS: 36415; 80053; 80061; 85025

== ENCOUNTER → 2024-07-21 09:20 | Outpatient (REF) | payer OTHER, SELFPAY ==
--- NOTE | 2024-07-21 09:28 | CA_ITS ---
Acquisition Time: 2024-07-21 09:39:03 Total Exercise Time: 00:05:01 Test Indications: CP Medications: SEE H&P Protocol: LUIS E Max HR: 160 BPM 88% of Pred: 181 BPM Max BP: 180/80 mmHG Max Work Load: 5.2 METS Exercise stress test with exercise 5 mins 1 secs of Luis E Protocol, held at stage 1 due to speed, able to increase incline to 13%, achieving 86% MPHR, with reports of severe SOB and 8/10 mid sternal squeezing pain with exercise, with isolated PVCs, with normotensive response to exercise. Without EKG changes meeting criteria for ischemia. In recovery, pt reported his chest pain changing to a sharp pain at 4/10. Breathing returned to baseline and chest pain improving slowly. Recommend stress test with nuclear images to further evaluate his symptoms. Test reviewed with Dr. Frankel. Referred By: Nori Faye Electronically Signed By: Donnie Akins
--- NOTE | 2024-07-21 09:28 | ECG_ITS ---
Test Reason : CP Blood Pressure : */* mmHG Vent. Rate : 79 BPM Atrial Rate : 79 BPM P-R Int : 162 ms QRS Dur : 82 ms QT Int : 390 ms P-R-T Axes : 59 77 18 degrees QTcB Int : 447 ms Normal sinus rhythm Normal ECG No previous ECGs available Referred By: Nori Faye Electronically Signed By: Torres Frankel
== END ==
LOC: HO.CARD 09:20
PROVIDERS: PCP Internal Medicine; Visit Provider Physician Assistant Medical
DX: R07.89 Other chest pain (principal)
CPT/HCPCS: 93005; 93017; 93242

== ENCOUNTER → 2024-07-21 09:28 | Outpatient (BNV) | payer OTHER, SELFPAY | PROVIDERS: PCP Internal Medicine | DX: R07.9 Chest pain, unspecified (principal); R06.02 Shortness of breath; I49.3 Ventricular premature depolarization | CPT/HCPCS: 93016; 93018 ==

== ENCOUNTER → 2024-08-06 09:56 | Outpatient (REF) | payer OTHER, SELFPAY ==
--- NOTE | 2024-08-06 09:59 | CA_ITS ---
Acquisition Time: 2024-08-06 09:59:52 Total Exercise Time: 00:02:00 Test Indications: CP Medications: SEE H&P Protocol: LEXISCAN Max HR: 130 BPM 71% of Pred: 181 BPM Max BP: 110/84 mmHG Max Work Load: 1.0 METS Pharmacological stress test with Lexiscan while pt marches in his chair, with reports of 4/10 mid chest pressure at baseline that got up to 7/10 with injection, with reports of SOB, with isolated PVCs, with normotensive response to injection. Nondiagnostic EKG for ischemia. In recovery, pt treated with IVP Aminophylline 75 mg to reverse Lexiscan after which pt's chest pressure returned to baseline. Breathing also improved. Nuclear images pending. Test reviewed with Dr. Portillo. Referred By: Nori Faye Electronically Signed By: Donnie Akins
== END ==
LOC: HO.CARD 09:56
PROVIDERS: PCP Internal Medicine; Visit Provider Physician Assistant Medical
DX: R07.89 Other chest pain (principal)
CPT/HCPCS: 78452; 93017; A9500; J0280; J2785

== ENCOUNTER → 2024-08-06 09:59 | Outpatient (BNV) | payer OTHER, SELFPAY | PROVIDERS: PCP Internal Medicine | DX: I49.3 Ventricular premature depolarization (principal); R06.02 Shortness of breath | CPT/HCPCS: 78452; 93016; 93018 ==